=== PATIENT | female | born 2000 | race Hispanic/Latino ===

== ENCOUNTER 2024-09-09 01:26 | Emergency (ER) | payer MEDICAID ==
[~2024-09-09 01:26] MED LIST: TYLENOL & COD12.5 ML PO; ZOFRAN ODT4 MG PO
[2024-09-09 02:40] VITALS: BP 122/88
== END 2024-09-09 02:40 | disposition home or self-care (01) ==
LOC: ED 01:26
DX: S01.112A Laceration without foreign body of left eyelid and periocular area, initial encounter (principal); W22.09XA Striking against other stationary object, initial encounter